=== PATIENT | female | born 1955 | race Two or more races ===

== ENCOUNTER 2019-06-30 12:42 | Outpatient (CLI) | payer OTHER | END 2019-06-30 14:47 | disposition home or self-care (01) | LOC: RAD 12:42 | DX: M54.5 Low back pain (principal) ==

== ENCOUNTER 2019-07-02 13:08 | Outpatient (CLI) | payer OTHER | END 2019-07-02 13:14 | disposition home or self-care (01) | LOC: MAMO-SONO 13:08 | DX: Z12.31 Encounter for screening mammogram for malignant neoplasm of breast (principal); Z87.898 Personal history of other specified conditions ==